=== PATIENT | female | born 1940 | race Caucasian/White ===

== ENCOUNTER 2016-12-04 20:23 | Emergency (ER) | payer MEDICARE, OTHER ==
[~2016-12-04] VITALS: Ht 157.5 cm; Wt 52.7 kg
[2016-12-04 20:34] VITALS: BP 183/77; PULSE 61; RESP 15; O2SAT 100
--- NOTE | 2016-12-04 21:13 | ED.REPORT ---
HPI-General Illness Date of Service Dec 04, 2016 ED Provider: John Paul Briones MD A 76 year old female with a history of hypertension and vertigo presents to the ED complaining of dizziness and nausea. The pt began to feel "spinning" dizziness at 19:30 while at the home of a friend, and felt nauseated soon after. She vomited while being driven to the ED. The pt denies headache, dysarthria, weakness, diarrhea, chest pain, or shortness of breath. The pt has never felt similar symptoms before and does not take any blood thinners. She takes Losartan and Thyroxine regularly. She also began taking Raloxifene for osteoporosis ten days ago. Nursing Notes Stated Complaint: DIZZY, VOMITING Chief Complaint: General Complaint Nursing Notes Reviewed: Yes Allergies: Coded Allergies: No Known Allergies (Unverified , 12/04/16) Scheduled PRN Meclizine (Bonine) 25 Mg Tab.chew 25 MG PO QID PRN PRN For Dizziness Ondansetron ODT (Zofran ODT) 4 Mg Tablet 4 MG PO Q4H PRN PRN For Nausea General Time Seen by MD: 21:10 Chief Complaint Dizziness Hx Obtained From: Patient Arrived By: Walk-in Sudden in Onset?: Yes Symptom Duration: Intermittent Recent Healthcare: No recent doctor visit, No recent hospitalization Similar Sx Previous: No Past Medical History Past Medical History hypertension vertigo Past Surgical History D/C breast BX Reports: Appendectomy, Hysterectomy Smoking History Unknown if Ever Smoker Social History Other Social History: Good social support, Ambulatory Status Independent Review of Systems denies dysarthria Full Review of Systems Constitutional: Denies: Fever Respiratory: Denies: Non-productive cough, Shortness of breath Cardiovascular: Denies: Chest pain GI: Reports: Nausea, Vomiting, Denies: Abdominal pain, Diarrhea Musculoskeletal: Denies: Back pain Skin: Denies Rash Neurologic: Reports: Dizziness, Denies: Headache, Weakness Complete sys rev & neg: except as marked. Physical Exam Vital Signs Vital Signs Date Time Temp Pulse Resp B/P Pulse Ox O2 Delivery O2 Flow Rate FiO2 12/05/16 02:36 104 24 145/76 100 Room Air 12/05/16 00:00 68 15 175/79 100 Room Air 12/04/16 23:32 67 14 168/61 97 12/04/16 22:52 68 181/68 194/76 12/04/16 20:34 36.1 61 15 183/77 100 Initial VS: Reviewed General/Constitutional: Awake, Alert Head / Eyes: Atraumatic, Normocephalic, PERRL, EOMI, No nystagmus ENT: Atraumatic, Airway patent, Mucous membranes moist Neck: Atraumatic, Supple, Full range of motion Respiratory / Chest: Atraumatic, Breath sounds NL, Breath sounds = bilat, No respiratory distress Cardiovascular: Heart rate NL, Regular rhythm mild systolic murmur, left upper sternal border Abdomen: Atraumatic, Soft, Non-tender Back: Atraumatic, Full range of motion Upper Extremities Upper Extremity / MS: Atraumatic, Full range of motion Lower Extremity / Pelvis / MS: Atraumatic, Full range of motion, No edema Skin: Atraumatic, Color NL, No rash, Warm, Dry Neurologic: Oriented X3, Speech NL, No motor deficits, No sensory deficits, CN II - XII intact Psychiatric: Affect NL, Mood NL Interpretation & Diagnostics Lab Results Interpretation Result Diagram: 12/04/163 12/04/16 2213 Test 12/04/16 22:13 12/04/16 22:51 White Blood Count 11.5th/mm3 (3.8-10.1) Red Blood Count 4.44mil/mm3 (3.90-5.20) Hemoglobin 13.3g/dL (12.0-15.6) Hematocrit 40.7% (35.0-46.0) Mean Corpuscular Volume 91.7fL (81-100) Mean Corpuscular Hemoglobin 30.0pg (27.0-35.0) Mean Corpuscular Hemoglobin Concent 32.7% (32.0-37.0) Red Cell Distribution Width 13.0% (12.3-15.4) Platelet Count 239bil/L (150-400) Neutrophils (%) (Auto) 71.7% (40-74) Lymphocytes (%) (Auto) 17.1% (14-46) Monocytes (%) (Auto) 8.4% (4-12) Eosinophils (%) (Auto) 2.1% (0-5) Basophils (%) (Auto) 0.4% (0-3) Sodium Level 138mEq/L (134-144) Potassium Level 3.6mEq/L (3.5-5.2) Chloride Level 99mEq/L (97-108) Carbon Dioxide Level 23mmol/L (18-29) Blood Urea Nitrogen 16mg/dL (8-27) Creatinine 0.62mg/dL (0.57-1.00) Estimat Glomerular Filtration Rate 134mL/min (>59) Glucose Level 117mg/dL (60-99) Calcium Level 9.0mg/dL (8.5-10.1) Magnesium Level 1.9mg/dL (1.6-2.6) Total Bilirubin 0.3mg/dL (0.0-1.2) Aspartate Amino Transf (AST/SGOT) 21U/L (0-50) Alanine Aminotransferase (ALT/SGPT) 12U/L (0-32) Alkaline Phosphatase 58U/L (25-165) Troponin T 0.010ug/L (0.0-0.011) Total Protein 6.9g/dL (6.4-8.4) Albumin 4.3g/dL (3.4-5.0) Hold Hernadez Top Tube Received (Received) Hold Urine Received (Received) ECG Interpretation ECG Interpretation: normal sinus rhythm with a rate of 60 LBBB Time: 21:48 Interpreted by: ED physician X-Ray Chest Interpretation Chest Xray Interpretation: no acute findings Interpretation / Wet Read by: Wet read ED physician CT Head Interpretation CONCLUSION: Mild atrophy. Interpretation / Wet Read by: Interpret - Radiologist Re-Eval/Medical Decision Med Decision/Clinical Course 76-year-old female presenting complaining of dizziness and vertigo that started this afternoon. She reports it is worse when she is standing up. Orthostatics negative. Vital signs with hypertension otherwise stable. Patient was given hydralazine and her blood pressure improved. Remained with systolics in the 150s to max 180s. Labs unremarkable. CT brain no acute pathology. Patient's dizziness resolved after IV fluids, Reglan, Zofran, meclizine, Toradol. She requested to go home and her symptoms resolved and she was able to walk without any difficulty. Possibly related to her recent starting raloxifene which has known side effect of vertigo. Advised her to discontinue this and follow up with her primary doctor to discuss alternative options. Given prescription for meclizine. Return precautions given. Source of Hx: Old records Time of Eval: 23:43 Patient Status: Condition improved Re-Evaluation/Progress Note: Pt rechecked, who is comfortable. She is feeling better and able to sit up. The pt feels slightly dizzy when she sits up, but is significantly better. The plan for discharge is discussed. The pt understands and agrees with the plan. All questions are addressed at this time. Time of Eval: 01:31 Re-Evaluation/Progress Note: Pt rechecked, who is dizzy and nauseated again. The plan for CT is discussed. The pt agrees with the plan. Time of Eval: 02:23 Re-Evaluation/Progress Note: Pt rechecked, who is resting. The plan for road test is discussed, as well as the plan for discharge pended successful road test. The pt understands and agrees with the plan. All questions are addressed at this time. Counseled Regarding: Diagnosis, Lab results, Need for follow-up, When/why to return to ED Discharge & Departure Primary Impression: Vertigo Disposition: Home Discharge Condition All VS Reviewed: Yes Condition: Stable Patient Instructions: Vertigo (ED) Additional Instructions: Thank you for entrusting us with your care today. Speak to your primary care physician as soon as possible regarding alternative options for the Raloxifene. You also have a slight heart murmur. Arrange for an outpatient ultrasound to evaluate this. Return to the emergency department if you develop any new or worsening symptoms. Referrals: Lori Stone MD (PCP) Elsa Attestation Portions of this note were transcribed by Kenzie Vásquez. I, Dr. Briones personally performed the history, physical exam and medical decision-making; I reviewed and confirmed the accuracy of the information in the transcribed note. Signed by: Elsa Soto, 12/04/2016 and 23:56. copies to: Lroi Stone MD, Ben M MD Dec 04, 2016 21:13 KENZIE VÁSQUEZ Dec 04, 2016 22:00
[2016-12-04] MEDS ORDERED: 0.9% Sodium Chloride 1,000 ML IV ONE (21:36)
[2016-12-04] MEDS: Ondansetron 2 mg/mL 2 mL Inj IVPUSH PRN (22:13)
[2016-12-04 22:42] LABS: BASOPHILS % (AUTO) 0.4 % (0-3); EOSINOPHILS % (AUTO) 2.1 % (0-5); MONOCYTES % (AUTO) 8.4 % (4-12); Mean Corpuscular Volume 91.7 fL (81-100); NEUTROPHILS % (AUTO) 71.7 % (40-74); Platelet Count 239 bil/L (150-400)
[2016-12-04] MEDS ORDERED: hydrALAZINE 20 mg/mL Inj IV ONE (22:50)
[2016-12-04 22:52] VITALS: BP_SYST 181; BP_SYST 194; BP_DIAS 68; BP_DIAS 76; PULSE 68
[2016-12-04 23:17] LABS: Magnesium 1.9 mg/dL (1.6-2.6); TROPONIN T 0.01 ug/L (0.0-0.011)
[2016-12-04 23:32] VITALS: BP 168/61; PULSE 67; RESP 14; O2SAT 97
[2016-12-04] MEDS ORDERED: ONDA4TAB9 PO (23:51)
[2016-12-04] MEDS ORDERED: MECL-114 PO (23:51)
[2016-12-05] VITALS: BP 175/79; PULSE 68; RESP 15; O2SAT 100
[2016-12-05] MEDS: Ondansetron 2 mg/mL 2 mL Inj IVPUSH PRN (00:21)
[2016-12-05] MEDS ORDERED: hydrALAZINE 20 mg/mL Inj IV ONE (00:25)
[2016-12-05] MEDS ORDERED: 0.9% Sodium Chloride 1,000 ML IV ONE (00:25)
[2016-12-05] MEDS ORDERED: Ondansetron 2 mg/mL 2 mL Inj IVPUSH ONE (00:25)
[2016-12-05] MEDS ORDERED: MetoCLOpramide 5 mg/mL 2 mL Inj IVPUSH ONE (01:40)
[2016-12-05 02:36] VITALS: BP 145/76; PULSE 104; RESP 24; O2SAT 100
--- NOTE | 2016-12-05 08:57 | DRSVH ---
PROCEDURE: X-RAY CHEST ONE VIEW, PORTABLE ([id number]) INDICATIONS: dizziness TECHNIQUE: One view of the chest was acquired. COMPARISON: None. FINDINGS: Surgical changes and devices: None. Lungs and pleura: No pleural effusions or pneumothorax. Lungs are clear. Mediastinum: Mediastinal contours appear normal. Heart size is normal. Bones and chest wall: No suspicious bony lesions. Overlying soft tissues appear unremarkable. IMPRESSION: No acute cardiopulmonary disease. Dictated by: Albert CARD Interpreted: Derick Francis MD on 12/05/2016 at 8:56 Transcribed by: SAL on 12/05/2016 at 8:56 Approved by: Derick Francis M.D. on 12/05/2016 at 17:45
--- NOTE | 2016-12-05 11:04 | DRSVH ---
PROCEDURE: CT BRAIN WITHOUT CONTRAST ([id number]) INDICATIONS: dizziness TECHNIQUE: Noncontrast 4.5 mm thick angled axial sections acquired from the foramen magnum to the vertex, with c oronal reformats. COMPARISON: None. FINDINGS: Image quality: Excellent. CSF spaces: Basal cisterns are patent. No extra-axial fluid collections. The ventricles are symmet ale in size and shape. Brain: No intracranial bleeds or masses. There is cerebral volume loss for age, with resultant vent ricular and sulcal prominence. There are periventricular and deep white matter chronic small vessel ischemic changes. There is intracranial internal carotid artery atherosclerosis. Skull and face: Calvarium and visualized facial bones appear intact, without suspicious lesions. Sinuses: Visualized sinuses and mastoids are clear. IMPRESSION: 1. No acute intracranial process. 2. Mild atrophy and chronic microvascular ischemic changes. Dictated by: Lacy Slater M.D. on 12/05/2016 at 11:01 Approved by: Lacy Slater M.D. on 12/05/2016 at 11:02
== END 2016-12-05 02:36 | disposition home or self-care (01) ==
LOC: SED 20:23
DX: R42 Dizziness and giddiness (principal); I10 Essential (primary) hypertension; M81.0 Age-related osteoporosis without current pathological fracture; Z90.710 Acquired absence of both cervix and uterus
CPT/HCPCS: 36415; 70450; 71010; 80053; 83735; 84484; 85025; 93005; 96361; 96374; 96375; 96376; 99285; J0360; J2405; J2765; J7030